=== PATIENT | female | born 1960 | race Caucasian/White ===

== ENCOUNTER → 2016-09-14 | Outpatient (CLI) | payer OTHER ==
[2016-03-21 11:00] VITALS: BP 93/50
[~2016-09-14] MED LIST: DIPH25TA54 PO; DOCU-27 PO; GADOBUTROL 7.5 MMOL/7.5 ML VIAL IV ONE; IBUP200T58 PO; NAPR220C4 PO; OXYC-323 PO; POLY17PO29 PO; TAMS0.4C97 PO
--- NOTE | 2016-09-14 12:28 | RAD ---
MR of the distal left thigh with and without contrast HISTORY: Left leg pain in the thigh and extending towards the knee. TECHNIQUE: Pre and postcontrast multiplanar images obtained. FINDINGS: Surface marker placed at the area of concern, at the medial distal thigh. No evidence of soft tissue mass, fluid collection, concerning for edema or abnormal enhancement. No evidence of encapsulated lipoma. Muscle tissue is intact. No abnormal soft tissue edema or fluid collection. No evidence of bone lesion. No acute fracture. No periosteal reaction. IMPRESSION: No significant abnormality is identified. Electronically signed by: Anson Scales MD (09/14/2016 12:24 PM)
== END | disposition home or self-care (01) ==
LOC: MRI 08:06
PROVIDERS: ATTEND Nurse Practitioner Family
DX: M79.605 Pain in left leg (principal)
CPT/HCPCS: 73720; A9585

== ENCOUNTER → 2019-01-19 | Outpatient (CLI) | payer OTHER ==
[2016-03-21 11:00] VITALS: BP 93/50
[~2019-01-19] MED LIST changes: +DOCU-109 PO; -DOCU-27 PO; -GADOBUTROL 7.5 MMOL/7.5 ML VIAL IV ONE; +HYDR-3164 PO; +MULT-245 PO; -OXYC-323 PO; +OXYC1TAB15 PO
--- NOTE | 2019-01-19 12:15 | KCIC ---
MR of the left knee HISTORY: Left knee pain. Symptoms for over one year. TECHNIQUE: Routine multiplanar sequences are obtained through the left knee FINDINGS: Tear of the medial meniscus extending through the undersurface of the body and posterior horn. Abnormal truncation of the free margin of the body of the lateral meniscus through posterior horn compatible with a tear. Anterior and posterior cruciate ligaments are intact. Medial collateral ligament is intact. Iliotibial band unremarkable. Fibular collateral ligament, biceps femoris tendon and popliteus tendon are intact. Extensor mechanism intact. No acute retinacular tear. Large joint effusion. Small full-thickness chondral defect at the central patella cartilage measuring 3 mm diameter. Medial and lateral compartment articular cartilage appears intact. No acute fracture. No aggressive bone destruction. Moderate fluid collection along the posteromedial knee partially surrounding the semimembranosus tendon. IMPRESSION: 1. Medial meniscal tear. 2. Lateral meniscal tear. 3. Moderate size fluid collection along the posteromedial knee most likely bursitis or cyst. 4. Large joint effusion. 5. 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 Electronically signed by: Anson Scales MD (01/19/2019 12:12 PM) [id number]
== END | disposition home or self-care (01) ==
LOC: KCIC MRI 10:03
PROVIDERS: ATTEND Physician Assistant Medical
DX: S83.242A Other tear of medial meniscus, current injury, left knee, initial encounter (principal); S83.282A Other tear of lateral meniscus, current injury, left knee, initial encounter; M25.462 Effusion, left knee; M94.262 Chondromalacia, left knee; M79.89 Other specified soft tissue disorders; Z90.49 Acquired absence of other specified parts of digestive tract; X58.XXXA Exposure to other specified factors, initial encounter; Y93.89 Activity, other specified; Y92.89 Other specified places as the place of occurrence of the external cause; Y99.8 Other external cause status
CPT/HCPCS: 73721

== ENCOUNTER 2019-02-16 08:49 | Day surgery (SDC) | payer OTHER ==
[~2019-02-16] VITALS: Ht 172.7 cm; Wt 73.0 kg
[~2019-02-16 08:49] MED LIST changes: +BUPIVACAINE MPF 0.5% 30 ML VIAL. ONE; +BUPIVACAINE-EPI 0.5%-1:200000 MPF 30 ML VIAL. INJ ONE; -HYDR-3164 PO; +HYDROmorphone 2 MG/ML VIAL IV PRN; +IV RINGERS,LACTATED 1000ML 1,000 ML IV SCH; +MORPHINE SULFATE 2 MG/ML VIAL. IV PRN; +ONDANSETRON PF 4 MG/2 ML VIAL. IV PRN; +PROCHLORPERAZINE 10 MG/2 ML VIAL. IV PRN; +fentaNYL PF VIAL 100 MCG/2 ML VIAL IV PRN
[2019-02-16] MEDS ORDERED: HYDR-3164 PO (10:27)
--- NOTE | 2019-02-16 10:29 | DISCH ---
DISCHARGE INSTRUCTIONS Condition on Discharge Condition on Discharge: Stable Activity After Discharge Activity Instructions for Disc: Activity as tolerated (slow advance to activity as tolerated over the next several days, elevate and ice extremity when not up and around) Diet after Discharge Diet after Discharge: Regular Wound Incision Care Wound/Incision Care: Change dressing (May remove dressing in 2 days may then shower no soaking until sutures removed) Checks after Discharge DC Comment: check for severe swelling and calf tenderness as discussed and call in Contacting the DR. after DC Call your doctor for: Concerns you may have Follow-Up Follow up with: Dr. Terry 10 days CASEY TERRY MD Feb 16, 2019 10:29
[2019-02-16] MEDS ORDERED: fentaNYL PF VIAL 100 MCG/2 ML VIAL ONE (12:01)
[2019-02-16] MEDS ORDERED: ONDANSETRON PF 4 MG/2 ML VIAL. ONE (13:03)
[2019-02-16] MEDS ORDERED: LIDOCAINE 2% PF 5 ML VIAL. ONE (13:03)
[2019-02-16] MEDS ORDERED: PROPOFOL 20 ML IV ONE (13:03)
[2019-02-16] MEDS ORDERED: DEXAMETHASONE SOD PHOS 4 MG/ML VIAL ONE (13:03)
[2019-02-16] MEDS ORDERED: SEVOFLURANE 31 TO 60 MINUTES. IH ONE (13:04)
[2019-02-16] MEDS ORDERED: HYDROcodone/APAP 5/325MG 1 TAB TABLET PO ONE (13:15)
[2019-02-16 13:40] VITALS: BP 115/66
--- NOTE | 2019-02-16 16:39 | PDOC4 ---
Operative Note Operative Note Date of surgery: 02/16/2019 Preoperative diagnosis: Meniscal tears Postoperative diagnosis: Same with medial and lateral meniscal tears plus chondromalacia central facet patella Operative procedure: Left knee arthroscopy partial medial and lateral meniscectomy and chondroplasty patella Surgeon: Mara Anesthesia: Gen. Estimated blood loss: 5 mL Complications: None Operative indications: Please see my orthopedic consultation for detailed o perative indications and note that we had covered the rationale for arthroscopic evaluation based on her history clinical findings and MRI findings with ongoing sharp pain with twisting pivoting type activities in her left knee. I had gone over with her the structure and function of the meniscus the rationale for treatment according to the pathology and the inability to effectively treat any degenerative type symptoms other than gently trimming any type of loose cartilage that may be present so it doesn't break off and irritate the knee joint and that ongoing symptomatic treatment may be necessary if she is having ongoing symptoms. All her questions were answered she wishes to proceed with surgical evaluation and treatment Operative text: Patient was identified procedure verified patient placed in the supine position on the operating table. After adequate amounts of general anesthesia were administered a thigh tourniquet was placed and the left lower extremity was prepped and draped in standard sterile fashion. After timeout was performed patient procedure identified and verified the left lower extremity was exsanguinated by Esmarch bandage tourniquet inflated to 250 Meredith is mercury a lateral portal was established medial portal established using spinal needle localization and the knee joint was systematically examined. She was found to have irregularity of the body and posterior horn junction of the medial meniscus and the meniscus appeared to be bulbous in nature on its inside edge where MRI was showing significant signal change indicating a tear. This area was debrided back to a stable meniscal rim remainder of the medial and lateral joint compartment were noted to be in good condition with an intact ACL. She did have free edge tearing of the body and anterior horn of the lateral meniscus as well as at the posterior root all of which were trimmed back to stable tissue with arthroscopic punch and saritha removing any loose fragments. The knee was again toured to ensure no loose cartilage fragments were noted and the central facet of the patella was lightly debrided with arthroscopic shaver to remove the loose frayed cartilage. The joint was drained of arthroscopic fluid portals were closed with nylon suture and the fat pad and portal area were injected with have percent plain Marcaine sterile dressings were applied patient was returned to recovery room in stable condition having tolerated procedure well toes were noted be warm pink following deflation of the tourniquet CASEY BAUER MD Feb 16, 2019 16:39
== END 2019-02-16 13:50 | disposition home or self-care (01) ==
LOC: SURG 08:49
PROVIDERS: ATTEND Orthopaedic Surgery
DX: S83.242A Other tear of medial meniscus, current injury, left knee, initial encounter (principal); S83.282A Other tear of lateral meniscus, current injury, left knee, initial encounter; M94.262 Chondromalacia, left knee; F19.90 Other psychoactive substance use, unspecified, uncomplicated; G62.9 Polyneuropathy, unspecified; Z90.49 Acquired absence of other specified parts of digestive tract; Z72.89 Other problems related to lifestyle; X58.XXXA Exposure to other specified factors, initial encounter; Y93.89 Activity, other specified; Y92.89 Other specified places as the place of occurrence of the external cause; Y99.8 Other external cause status
CPT/HCPCS: 29880; A7015; C1782; J0690; J1100; J2001; J2405; J2704; J3010; J3490; J7120